=== PATIENT | female | born 1990 | race Caucasian/White ===

== ENCOUNTER 2021-06-23 10:14 | Emergency (ER) | payer OTHER ==
[2021-06-23] MEDS ORDERED: Sodium Chloride 0.9% 2.5 ML Syringe FLUSH PRN (10:15)
[2021-06-23] MEDS ORDERED: Sodium Chloride 0.9% 10 ML Syringe FLUSH PRN (10:15)
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
[2021-06-23] MEDS ORDERED: Ondansetron 4 MG/2 ML SDV IVPUSH ONE (10:38)
[2021-06-23] MEDS ORDERED: Sodium Chloride 0.9% 1,000 ML IV ONE (10:38)
[2021-06-23] MEDS ORDERED: LORazepam 2 MG/ML SDV IVPUSH ONE (10:38)
[2021-06-23] MEDS ORDERED: HYDROmorphone 1 MG/ML Syringe IM ONE (10:39)
[2021-06-23 10:47] LABS: BLOOD UREA NITROGEN,BUN 12 mg/dL (7.0-18.0); CARBON DIOXIDE,CO2 21.6 mmol/L (21.0-32.0); CHLORIDE,CL 107 mmol/L (98-107); GLUCOSE RANDOM 110 mg/dL (74-106); LIPASE 360 U/L (73-393); POTASSIUM,K 3.9 mmol/L (3.5-5.1); SODIUM,NA 142 mmol/L (136-145)
[2021-06-23] MEDS ORDERED: Lidocaine 1% with EPINEPHrine 1:100,000 10 ML MDV INJECT ONE (10:54)
[2021-06-23] MEDS ORDERED: Lidocaine 1% with EPINEPHrine 1:100,000 20 ML MDV INJECT ONE (10:55)
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
[2021-06-23] MEDS ORDERED: Diphtheria,Pertussis(Acell),Tetanus Vaccine 0.5 ML Syringe IM ONE (12:48)
[2021-06-23] MEDS ORDERED: Acetaminophen 500 MG Tab PO ONE (13:26)
== END 2021-06-23 13:30 | disposition home or self-care (01) ==
LOC: MW.ED 10:14
DX: S01.81XA Laceration without foreign body of other part of head, initial encounter (principal); S20.219A Contusion of unspecified front wall of thorax, initial encounter; S80.212A Abrasion, left knee, initial encounter; S80.211A Abrasion, right knee, initial encounter; Z91.048 Other nonmedicinal substance allergy status; Z23 Encounter for immunization; V49.40XA Driver injured in collision with unspecified motor vehicles in traffic accident, initial encounter; Y92.410 Unspecified street and highway as the place of occurrence of the external cause
CPT/HCPCS: 12013; 36415; 70450; 71045; 72170; 73562; 73610; 80053; 83690; 84703; 85025; 90471; 90715; 96374; 96375; 99285; A9270; G0390; J1170; J2060; J2405; J7030